=== PATIENT | female | born 1975 | race Caucasian/White ===

== ENCOUNTER 2019-10-11 07:47 | Outpatient (CLI) | payer BC ==
--- NOTE | 2019-10-11 08:35 | MMO ---
Bilateral MAMMO Bilat Screen [facility]. CLINICAL HISTORY: Patient is 44 years old and is seen for screening. The patient has no family history of breast cancer. The patient has no personal history of cancer. VIEWS: The views performed were: bilateral craniocaudal with tomosynthesis and bilateral mediolateral oblique with tomosynthesis. FILMS COMPARED: The present examination has been compared to a prior imaging study performed at [facility] on 05/10/2018. This study has been interpreted with the assistance of computer-aided detection. MAMMOGRAM FINDINGS: The breasts are heterogeneously dense, which could obscure a lesion on mammography. There are stable benign appearing calcifications seen in both breasts. There are no suspicious masses, suspicious calcifications, or new areas of architectural distortion. IMPRESSION: THERE IS NO MAMMOGRAPHIC EVIDENCE OF MALIGNANCY. A ROUTINE FOLLOW-UP MAMMOGRAM IN 1 YEAR IS RECOMMENDED. THE RESULTS OF THIS EXAM WERE SENT TO THE PATIENT. ACR BI-RADS Category 2 - Benign finding MAMMOGRAPHY NOTE: 1. A negative mammogram report should not delay a biopsy if a dominant of clinically suspicious mass is present. 2. Approximately 10% to 15% of breast cancers are not detected by mammography. 3. Adenosis and dense breasts may obscure an underlying neoplasm. Reported by: PEBBLES ANNE MD Electonically Signed: [id number]
== END 2019-10-11 07:48 | disposition home or self-care (01) ==
LOC: BICMAMMO 07:47
PROVIDERS: ATTEND Obstetrics & Gynecology
DX: Z12.31 Encounter for screening mammogram for malignant neoplasm of breast (principal)
CPT/HCPCS: 77063; 77067

== ENCOUNTER 2022-06-18 08:18 | Outpatient (CLI) | payer BC | END 2022-06-18 08:19 | disposition home or self-care (01) | LOC: BICMAMMO 08:18 | PROVIDERS: ATTEND Nurse Practitioner Family | DX: Z12.31 Encounter for screening mammogram for malignant neoplasm of breast (principal) | CPT/HCPCS: 77063; 77067 ==

== ENCOUNTER 2022-07-30 05:55 | Observation (INO) | payer BC ==
[2022-07-30] MEDS ORDERED: Thrombin 5000 UNITS/5 ML VIAL ONE (06:26)
[2022-07-30] MEDS ORDERED: Vancomycin 1 GM VIAL ONE (06:26)
[2022-07-30] MEDS ORDERED: SUGAMMADEX SODIUM 200 MG/2 ML VIAL ONE (06:43)
[2022-07-30] MEDS ORDERED: fentaNYL PF 100 MCG/2 ML SYRINGE ONE (06:43)
[2022-07-30] MEDS ORDERED: CEFAZOLIN 2 GM VIAL ONE (07:05)
[2022-07-30] MEDS ORDERED: Sodium Chloride 0.9% 100 ML ONE (07:05)
[2022-07-30] MEDS ORDERED: Midazolam HCl 2 mg/2 ml Vial ONE (07:23)
[2022-07-30] MEDS ORDERED: Lidocaine 1% PF 5 ML VIAL ONE (07:50)
[2022-07-30] MEDS ORDERED: Rocuronium Bromide 10 MG/ML (10ML VIAL) ONE (07:50)
[2022-07-30] MEDS ORDERED: PHENYLEPHRINE-NS 100 MCG/ML 10 ML SYRINGE ONE (07:50)
[2022-07-30] MEDS ORDERED: PROPOFOL 200 MG/20 ML VIAL ONE (07:50)
[2022-07-30] MEDS ORDERED: Acetaminophen/Codeine 30-300mg Tablet PO PRN (09:04)
[2022-07-30] MEDS ORDERED: Ondansetron PF 4 MG/2 ML Vial IVP PRN ×2 (09:04→20:34)
[2022-07-30] MEDS ORDERED: diphenhydrAMINE 25 MG CAP PO PRN (09:04)
[2022-07-30] MEDS ORDERED: Acetaminophen 325 MG TAB PO PRN (09:04)
[2022-07-30] MEDS ORDERED: HYDROcodone/Acetaminophen 5/325 mg Tablet PO PRN (09:06)
[2022-07-30] MEDS ORDERED: tiZANidine HCl 4 MG TAB PO PRN (09:06)
[2022-07-30] MEDS ORDERED: RIZATRIPTAN BENZOATE 5 MG PO PRN (09:07)
[2022-07-30] MEDS ORDERED: SUMAtriptan Succinate 50 MG TAB PO PRN (09:12)
[2022-07-30] MEDS ORDERED: Ondansetron PF 4 MG/2 ML Vial ONE (09:14)
[2022-07-30] MEDS ORDERED: fentaNYL 50 mcg/mL 1 mL Vial ONE ×4 (09:15→11:25)
[2022-07-30 12:58] VITALS: BMI 23.1
[2022-07-30] MEDS: Morphine 2 MG/ML VIAL SLOW IVP PRN ×2 (13:32→21:39)
[2022-07-30] MEDS: Sodium Chloride 0.9% 1,000 ML IV SCH ×2 (13:34→21:46)
[2022-07-30] MEDS: CEFAZOLIN 2 GM in Sodium Chloride 0.9% 100 ML IVPB SCH ×2 (13:35→21:44)
[2022-07-30] MEDS: traMADol HCl 50 MG TAB PO PRN (18:58)
[2022-07-30] MEDS ORDERED: Non-Formulary Item 1 EACH (Celecoxib [Celebrex] 200 MG Capsule) PO SCH (21:00)
[2022-07-30] MEDS ORDERED: CeleCOXIB 100 MG CAP PO SCH (21:00)
[2022-07-30] MEDS: Pregabalin 75 MG CAP PO SCH (23:28)
[2022-07-31] MEDS: Ondansetron PF 4 MG/2 ML Vial IVP SCH ×3 (02:14→16:59)
[2022-07-31] MEDS: traMADol HCl 50 MG TAB PO PRN ×3 (02:18→18:02)
[2022-07-31] MEDS: Morphine 2 MG/ML VIAL SLOW IVP PRN (06:55)
[2022-07-31] MEDS ORDERED: Scopolamine 1.5 mg/72 hour Patch TD SCH (08:15)
[2022-07-31] MEDS: Pregabalin 75 MG CAP PO SCH (08:27)
[2022-07-31] MEDS ORDERED: Promethazine HCl 12.5 MG in Sodium Chloride 0.9% 50 ML IVPB PRN (11:02)
[2022-07-31] MEDS: Sodium Chloride 0.9% 1,000 ML IV SCH (16:59)
[2022-07-31 17:13] VITALS: BP 110/71; TEMP 98.6
== END 2022-07-31 18:59 | disposition home or self-care (01) ==
LOC: SDC 05:55 → T4-B 12:09
PROVIDERS: ADMIT Surgery; ATTEND Surgery
PROC: 0QB00ZZ Excision of Lumbar Vertebra, Open Approach (ICD-10-PCS; principal; 2022-07-31)
PROC: 0QB10ZZ Excision of Sacrum, Open Approach (ICD-10-PCS; 2022-07-31)
DX: M51.16 Intervertebral disc disorders with radiculopathy, lumbar region (principal)
CPT/HCPCS: J2250; J2272; J2405; J2550; J2704; J3010; J3370; J3490; J7050